=== PATIENT | male | born 1950 | race Caucasian/White ===

== ENCOUNTER 2017-06-03 10:08 | Inpatient (IN) | payer MEDICARE ==
[2017-06-03] VITALS (7 sets, daily range): BP systolic 99–125; BP diastolic 58–75; PULSE 65–96; RESP 16–22; TEMP 98.7–102.5; O2SAT 94–99
[~2017-06-03] VITALS: Ht 177.8 cm; Wt 70.9 kg
[2017-06-03] MEDS ORDERED: PLAV75TA29 PO (10:17)
[2017-06-03] MEDS ORDERED: ATEN25TA PO (10:17)
[2017-06-03] MEDS ORDERED: ASPI-516 CHEW (10:22)
[2017-06-03] MEDS ORDERED: CYAN1TAB24 PO (10:22)
--- NOTE | 2017-06-03 10:27 | PD ---
HPI Chief Complaint: Cold / Flu Symptoms Time Seen by Provider: 10:19 Travel History International Travel<30 days: No Contact w/Intl Traveler<30days: No Traveled to known affect area: No History of Present Illness HPI The patient is a 66-year-old male who presents to the emergency department via EMS for chills, rigors, fever, and cough. The patient flew down from [place] 2 days ago for the races. The patient developed a dry nonproductive cough last night. He then had chills and rigors earlier today. He does have a history of pneumonia. Patient has had subjective fever. He does complain of nausea with dry heaves, denies any diarrhea or abdominal pain. He denies any diffuse body aches. The patient did receive an influenza vaccination this year. The patient denies any dysuria, frequency, urgency, or myalgias. Symptoms are moderate. The patient has a remote history of tobacco use, quit over 10 years ago. PFSH Past Medical History Hx Anticoagulant Therapy: Yes (PLAVIX) Cardiovascular Problems: Yes (BYPASS) Diminished Hearing: No Hypertension: Yes Tetanus Vaccination: > 5 Years Influenza Vaccination: No Past Surgical History Coronary Artery Bypass Graft: Yes (QUAD 2005) Social History Alcohol Use: No Tobacco Use: No (QUIT 2004) Substance Use: No Allergies-Medications (Allergen,Severity, Reaction): Coded Allergies: No Known Allergies (Verified Allergy, Unknown, 06/03/17) Reported Meds & Prescriptions Reported Meds & Active Scripts Active Reported B12 (Cyanocobalamin) 1,000 Mcg Tab 1 Tab PO DAILY Aspirin 81 Mg Chew 81 Mg CHEW DAILY Atenolol 25 Mg Tab 12.5 Mg PO DAILY Plavix (Clopidogrel Bisulfate) 75 Mg Tab 75 Mg PO DAILY Review of Systems Except as stated in HPI: all other systems reviewed are Neg General / Constitutional: Positive: Fever, Chills HENT: No: Congestion Cardiovascular: No: Chest Pain or Discomfort Respiratory: Positive: Cough, No: Shortness of Breath Gastrointestinal: Positive: Nausea, Vomiting, No: Diarrhea, Abdominal Pain Genitourinary: No: Dysuria Musculoskeletal: No: Myalgias, Arthralgias Physical Exam Narrative GENERAL: Awake, alert, 66-year-old male who appears his stated age and is in no acute respiratory distress. SKIN: Focused skin assessment warm/dry. HEAD: Atraumatic. Normocephalic. EYES: Pupils equal and round. No scleral icterus. No injection or drainage. ENT: No nasal bleeding or discharge. Oropharynx reveals erythema without exudate NECK: Trachea midline. No JVD. CARDIOVASCULAR: Regular rate and rhythm. No murmur appreciated. Well-healed sternal scar. RESPIRATORY: No accessory muscle use. Few scattered rhonchi. GASTROINTESTINAL: Abdomen soft, non-tender, nondistended. No rebound tenderness. MUSCULOSKELETAL: No obvious deformities. No clubbing. No cyanosis. No edema. NEUROLOGICAL: Awake and alert. No obvious cranial nerve deficits. Motor grossly within normal limits. Normal speech. PSYCHIATRIC: Appropriate mood and affect; insight and judgment normal. Data Data Last Documented VS Vital Signs Date Time Temp Pulse Resp B/P (MAP) Pulse Ox O2 Delivery O2 Flow Rate FiO2 06/03/17 11:00 96 16 125/60 (81) 99 Room Air 06/03/17 10:31 2.00 06/03/17 10:20 102.5 Orders Orders Complete Blood Count With Diff (06/03/17 10:19) Comprehensive Metabolic Panel (06/03/17 10:19) B-Type Natriuretic Peptide (06/03/17 10:19) Magnesium (Mg) (06/03/17 10:19) Influenzae A/B Antigen (06/03/17 10:19) Blood Culture (06/03/17 10:19) Iv Access Insert/Monitor (06/03/17 10:19) Electrocardiogram (06/03/17 10:19) Ecg Monitoring (06/03/17 10:19) Oximetry (06/03/17 10:19) Oxygen Administration (06/03/17 10:19) Chest, Single Ap (06/03/17 10:19) Sodium Chloride 0.9% Flush (Ns Flush) (06/03/17 10:30) Albuterol-Ipratropium Neb (Duoneb Neb) (06/03/17 10:30) Sodium Chlor 0.9% 1000 Ml Inj (Ns 1000 M (06/03/17 10:30) Acetaminophen (Tylenol) (06/03/17 10:30) Urinalysis - C+S If Indicated (06/03/17 10:27) Lactic Acid (06/03/17 10:29) Ceftriaxone Inj (Rocephin Inj) (06/03/17 11:00) Azithromycin Inj (Zithromax Inj) (06/03/17 11:00) Labs Laboratory Tests Test 06/03/17 10:17 06/03/17 10:27 06/03/17 10:30 B-Type Natriuretic Peptide 59 PG/ML White Blood Count 14.1 TH/MM3 Red Blood Count 4.53 MIL/MM3 Hemoglobin 13.7 GM/DL Hematocrit 40.2 % Mean Corpuscular Volume 88.6 FL Mean Corpuscular Hemoglobin 30.3 PG Mean Corpuscular Hemoglobin Concent 34.2 % Red Cell Distribution Width 13.9 % Platelet Count 174 TH/MM3 Mean Platelet Volume 6.8 FL Neutrophils (%) (Auto) 87.1 % Lymphocytes (%) (Auto) 6.3 % Monocytes (%) (Auto) 5.1 % Eosinophils (%) (Auto) 0.8 % Basophils (%) (Auto) 0.7 % Neutrophils # (Auto) 12.3 TH/MM3 Lymphocytes # (Auto) 0.9 TH/MM3 Monocytes # (Auto) 0.7 TH/MM3 Eosinophils # (Auto) 0.1 TH/MM3 Basophils # (Auto) 0.1 TH/MM3 CBC Comment DIFF FINAL Differential Comment Blood Urea Nitrogen 13 MG/DL Creatinine 0.82 MG/DL Random Glucose 104 MG/DL Total Protein 7.9 GM/DL Albumin 3.8 GM/DL Calcium Level 8.4 MG/DL Magnesium Level 2.0 MG/DL Alkaline Phosphatase 119 U/L Aspartate Amino Transf (AST/SGOT) 18 U/L Alanine Aminotransferase (ALT/SGPT) 14 U/L Total Bilirubin 0.6 MG/DL Sodium Level 139 MEQ/L Potassium Level 3.5 MEQ/L Chloride Level 104 MEQ/L Carbon Dioxide Level 28.5 MEQ/L Anion Gap 7 MEQ/L Estimat Glomerular Filtration Rate 94 ML/MIN Lactic Acid Level 1.3 mmol/L [facility] Medical Decision Making Medical Screen Exam Complete: Yes Emergency Medical Condition: Yes Medical Record Reviewed: Yes Interpretation(s) EKG reveals normal sinus rhythm with a rate of 97. Q wave noted in lead 2, 3, and aVF. Inverted T waves noted in lead V5, V6, 1, 2, and aVF. Last Impressions Chest X-Ray 06/03/17 1019 Signed Impressions: Service Date/Time: Saturday, June 03, 2017 10:27 - CONCLUSION: Abnormal chest. Inflammatory process is suspected. Hilar mass on the right cannot be excluded. Levi Landrum MD FACR Laboratory Tests Test 06/03/17 10:17 06/03/17 10:27 06/03/17 10:30 B-Type Natriuretic Peptide 59 PG/ML White Blood Count 14.1 TH/MM3 Red Blood Count 4.53 MIL/MM3 Hemoglobin 13.7 GM/DL Hematocrit 40.2 % Mean Corpuscular Volume 88.6 FL Mean Corpuscular Hemoglobin 30.3 PG Mean Corpuscular Hemoglobin Concent 34.2 % Red Cell Distribution Width 13.9 % Platelet Count 174 TH/MM3 Mean Platelet Volume 6.8 FL Neutrophils (%) (Auto) 87.1 % Lymphocytes (%) (Auto) 6.3 % Monocytes (%) (Auto) 5.1 % Eosinophils (%) (Auto) 0.8 % Basophils (%) (Auto) 0.7 % Neutrophils # (Auto) 12.3 TH/MM3 Lymphocytes # (Auto) 0.9 TH/MM3 Monocytes # (Auto) 0.7 TH/MM3 Eosinophils # (Auto) 0.1 TH/MM3 Basophils # (Auto) 0.1 TH/MM3 CBC Comment DIFF FINAL Differential Comment Blood Urea Nitrogen 13 MG/DL Creatinine 0.82 MG/DL Random Glucose 104 MG/DL Total Protein 7.9 GM/DL Albumin 3.8 GM/DL Calcium Level 8.4 MG/DL Magnesium Level 2.0 MG/DL Alkaline Phosphatase 119 U/L Aspartate Amino Transf (AST/SGOT) 18 U/L Alanine Aminotransferase (ALT/SGPT) 14 U/L Total Bilirubin 0.6 MG/DL Sodium Level 139 MEQ/L Potassium Level 3.5 MEQ/L Chloride Level 104 MEQ/L Carbon Dioxide Level 28.5 MEQ/L Anion Gap 7 MEQ/L Estimat Glomerular Filtration Rate 94 ML/MIN Lactic Acid Level 1.3 mmol/L Date/Time Source Procedure Growth Status 06/03/17 10:27 Blood Peripheral Aerobic Blood Culture Pending Received 06/03/17 10:27 Blood Peripheral Anaerobic Blood Culture Pending Received 06/03/17 10:17 Blood Peripheral Aerobic Blood Culture Pending Received 06/03/17 10:17 Blood Peripheral Anaerobic Blood Culture Pending Received 06/03/17 10:27 Nasal Aspirate Influenza Types A,B Antigen (YOANA) - Final NEGATIVE FOR FLU A AND B ANTIGEN.... Complete Differential Diagnosis Differential diagnosis includes pneumonia, influenza, bronchitis, viral syndrome , URI, sepsis, UTI. Narrative Course IV was established, labs are drawn and sent, and the patient was placed on cardiac telemetry monitoring and continuous pulse oximetry monitoring. Chest x- ray was obtained. Influenza screen was sent to lab. The patient was administered Tylenol and IV fluids. Lactic acid blood culture were sent to lab. White count is mildly elevated at 14.3. Lactic acid is normal. Chest x- ray reveals pneumonia in the right middle to right upper lobe. The patient was reevaluated at 11:55 AM, his symptoms had improved. I did have a discussion with the patient regarding admission versus outpatient follow-up. I did offer admission, patient would prefer to try outpatient treatment. He will be placed on Zithromax, albuterol inhaler, and is advised to return if his symptoms worsen or progress. The patient agrees and understands. Influenza screen was negative. Sepsis Criteria SIRS Criteria (2 or more): Temp > 100.9 or < 96.8, Heart rate over 90 Sepsis Criteria (SIRS+source): Infect source susp/known Diagnosis Primary Impression: Pneumonia Qualified Codes: J18.1 - Lobar pneumonia, unspecified organism Patient Instructions: General Instructions Additional Instructions: Please provide a patient a copy of his labs and x-ray results at discharge. Medications as directed. Return immediately if symptoms worsen or progress. Follow-up with your primary physician. Med/Other Pt SpecificInfo: Prescription(s) given Scripts Albuterol 8.5 GM Inh (Proair Hfa 8.5 GM Inh) 90 Mcg/Act Aer 2 PUFF INH Q4-6H Y for SHORTNESS OF BREATH, #1 INHALER 0 Refills 108 mcg/actuation Prov: Home Bertrand MD 06/03/17 Levofloxacin (Levaquin) 500 Mg Tablet 500 MG PO DAILY for Infection for 7 Days, #7 TAB 0 Refills Prov: Home Bertrand MD 06/03/17 Disposition: 01 DISCHARGE HOME Condition: Stable Home Bertrand MD Jun 03, 2017 10:27
[2017-06-03] MEDS ORDERED: SODIUM CHLORIDE 0.9% FLUSH 10 ML FLUSH IVF PRN (10:30)
[2017-06-03] MEDS ORDERED: ACETAMINOPHEN 325 MG TAB PO ONE (10:30)
[2017-06-03] MEDS ORDERED: SODIUM CHLOR 0.9% 1000 ML INJ 1,000 ML IV ONE (10:30)
[2017-06-03] MEDS: RESP: ALBUTEROL 2.5 MG/IPRATROPIUM 0.5 MG NEB (SCH) INH ×2 (10:31→10:32)
[2017-06-03 10:44] LABS: AUTOMATED NEUTROPHIL # 12.3 TH/MM3 (1.8-7.7); BASOPHIL # 0.1 TH/MM3 (0-0.2); BASOPHIL % 0.7 % (0.0-2.0); EOSINOPHIL # 0.1 TH/MM3 (0-0.4); EOSINOPHIL % 0.8 % (0.0-4.0); HEMATOCRIT 40.2 % (39.0-51.0); HEMOGLOBIN 13.7 GM/DL (13.0-17.0); LYMPH % 6.3 % (9.0-44.0); LYMPHOCYTE # 0.9 TH/MM3 (1.0-4.8); MEAN CELL VOLUME 88.6 FL (80.0-100.0); MEAN CORPUSCULAR HEMOGLOBIN 30.3 PG (27.0-34.0); MEAN CORPUSCULAR HGB CONC 34.2 % (32.0-36.0); MEAN PLATELET VOLUME 6.8 FL (7.0-11.0); MONO % 5.1 % (0.0-8.0); MONOCYTE # 0.7 TH/MM3 (0-0.9); NEUT % 87.1 % (16.0-70.0); PLATELET COUNT 174 TH/MM3 (150-450); RED BLOOD COUNT 4.53 MIL/MM3 (4.50-5.90); RED CELL DISTRIBUTION WIDTH 13.9 % (11.6-17.2); WHITE BLOOD COUNT 14.1 TH/MM3 (4.0-11.0)
--- NOTE | 2017-06-03 10:49 | RADRPT ---
EXAM DATE/TIME: 06/03/2017 10:27 [facility] COMPARISON: No previous studies available for comparison. INDICATIONS : Lightheaded and chills. MEDICAL HISTORY : Carcinoma, gastric. SURGICAL HISTORY : CABG. Gastrectomy. ENCOUNTER: Initial ACUITY: 1 day PAIN SCORE: 0/10 LOCATION: Bilateral chest FINDINGS: There are early consolidative changes in the right perihilar region in the right upper lobe. The rig ht hilum is prominent and mass cannot be excluded. Multiple changes left base. CONCLUSION: Abnormal chest. Inflammatory process is suspected. Hilar mass on the right cannot be excluded. Levi Landrum MD FACR on June 03, 2017 at 10:37 Board Certified Radiologist. This report was verified electronically.
[2017-06-03] MEDS ORDERED: cefTRIAXone INJ 1,000 MG in SODIUM CHLORIDE 0.9% INJ 100 ML IV ONE (11:00)
[2017-06-03] MEDS ORDERED: AZITHROMYCIN INJ 500 MG in SODIUM CHLOR 0.9% 250 ML INJ 250 ML IV ONE (11:00)
[2017-06-03 11:03] LABS: ALBUMIN 3.8 GM/DL (3.4-5.0); ALT (GPT) 14 U/L (12-78); AST (GOT) 18 U/L (15-37); BICARBONATE 28.5 MEQ/L (21.0-32.0); BLOOD UREA NITROGEN 13 MG/DL (7-18); CALCIUM 8.4 MG/DL (8.5-10.1); CHLORIDE 104 MEQ/L (98-107); CREATININE 0.82 MG/DL (0.60-1.30); GLOMERULAR FILTRATION RATE 94 ML/MIN (>89); GLUCOSE,RANDOM 104 MG/DL (74-106); SODIUM (NA) 139 MEQ/L (136-145)
[2017-06-03 11:05] LABS: ALKALINE PHOSPHATASE 119 U/L (45-117); TOTAL BILIRUBIN ADULT 0.6 MG/DL (0.2-1.0); TOTAL PROTEIN 7.9 GM/DL (6.4-8.2)
[2017-06-03] MEDS ORDERED: ALBUAER3 INH (12:02)
[2017-06-03] MEDS ORDERED: LEVA500T33 PO (12:02)
[2017-06-03] MEDS ORDERED: LACTULOSE SYRUP 20 GM/30 ML CUP PO PRN (13:15)
[2017-06-03] MEDS ORDERED: NALOXONE HCL 0.4 MG/ML AMP IV PUSH PRN (13:15)
[2017-06-03] MEDS ORDERED: BISACODYL 10 MG SUPP RECTAL PRN (13:15)
[2017-06-03] MEDS ORDERED: SODIUM CHLORIDE 0.9% FLUSH 10 ML FLUSH IV FLUSH PRN (13:15)
[2017-06-03] MEDS ORDERED: MAGNESIUM HYDROXIDE SUSP 30 ML CUP PO PRN (13:15)
[2017-06-03] MEDS ORDERED: SENNOSIDES 8.6 MG TAB PO PRN (13:15)
--- NOTE | 2017-06-03 19:15 | HHI.HP ---
HPI Service [facility] Primary Care Physician Unknown Admission Diagnosis right middle lobe pneumonia, sepsis Diagnoses: Travel History International Travel<30 Days: No Contact w/Intl Traveler <30 Da: No Traveled to Known Affected Are: No History of Present Illness Pt is a 66 yr old male w PMHx of gastric CA, recurrent aspiration PNA, CAD requiring quadruple bypass sx presented to the ED upon the requests of his friends because he wasn't feeling well. Pt is visiting from [place] and is here for the [employer]. This morning pt had chills, tactile fevers and per friend was confused. He denied any cough however when I was interviewing him he did have a wet cough which he admits he has been having on and off. Pt states that he sees his curb setter helper Dr. Randy Kwon and he has been doing CT scans of his chest q6 months because of concerns of aspiration. He states that at times, he gets low grade fevers which usually last about 24 hrs. Pt denies any sick contacts. Denies any burning w urination, increase urinary frequency, sore throat or runny nose. Does admit to congestion. Denies any CP/SOB/N/V at this time. I also spoke w Pt's friend (Dr. Gabino Renteria [phone]) per his request Discussed case w Dr. Britney Young, pulm fellow covering for Dr. 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 Young. last CT was from dec 2016- multifocal infiltrate w slight worsening on the right apex and improvement of other focii. Past Surgical History quadruple bypass sx, right carotid stent in 2009, abdominal hernia repair. Reported Medications Reported Meds & Active Scripts Active Proair Hfa 8.5 GM Inh (Albuterol Sulfate) 90 Mcg/Act Aer 2 Puff INH Q4-6H PRN 108 mcg/actuation Levaquin (Levofloxacin) 500 Mg Tablet 500 Mg PO DAILY 7 Days Reported B12 (Cyanocobalamin) 1,000 Mcg Tab 1 Tab PO DAILY Aspirin 81 Mg Chew 81 Mg CHEW DAILY Atenolol 25 Mg Tab 12.5 Mg PO DAILY Plavix (Clopidogrel Bisulfate) 75 Mg Tab 75 Mg PO DAILY Allergies: Coded Allergies: No Known Allergies (Verified Allergy, Unknown, 06/03/17) Family History mother from pancreatic cancer father from lymphoma Social History quit smoking in 2009. smoked for 40+years denies alcohol use or illegal drug use Physical Exam Vital Signs Vital Signs Date Time Temp Pulse Resp B/P (MAP) Pulse Ox O2 Delivery O2 Flow Rate FiO2 06/03/17 16:57 98.7 65 18 111/58 (75) 98 06/03/17 12:15 99.9 06/03/17 11:00 96 16 125/60 (81) 99 Room Air 06/03/17 10:31 95 Nasal Cannula 2.00 06/03/17 10:31 91 20 94 Room Air 06/03/17 10:20 91 20 94 Room Air 06/03/17 10:20 102.5 06/03/17 10:14 89 22 119/75 (90) Physical Exam GENERAL: This is a well-nourished, well-developed patient, sitting up in bed SKIN: No rashes. Cool and dry. HEAD: Atraumatic. Normocephalic. EYES: Extraocular motions intact. ENT: Nose without drainage. Throat without erythema, tonsillar hypertrophy or exudate. Uvula midline. Airway patent. NECK: Trachea midline. CARDIOVASCULAR: Regular rate and rhythm without murmurs RESPIRATORY: no wheezing, I didn't appreciate GASTROINTESTINAL: Abdomen soft, non-tender, nondistended. No guarding. MUSCULOSKELETAL: Extremities without edema. NEUROLOGICAL: Awake and alert. Motor and sensory grossly within normal limits. Normal speech. Laboratory Laboratory Tests Test 06/03/17 10:17 06/03/17 10:27 06/03/17 10:30 B-Type Natriuretic Peptide 59 White Blood Count 14.1 Red Blood Count 4.53 Hemoglobin 13.7 Hematocrit 40.2 Mean Corpuscular Volume 88.6 Mean Corpuscular Hemoglobin 30.3 Mean Corpuscular Hemoglobin Concent 34.2 Red Cell Distribution Width 13.9 Platelet Count 174 Mean Platelet Volume 6.8 Neutrophils (%) (Auto) 87.1 Lymphocytes (%) (Auto) 6.3 Monocytes (%) (Auto) 5.1 Eosinophils (%) (Auto) 0.8 Basophils (%) (Auto) 0.7 Neutrophils # (Auto) 12.3 Lymphocytes # (Auto) 0.9 Monocytes # (Auto) 0.7 Eosinophils # (Auto) 0.1 Basophils # (Auto) 0.1 CBC Comment DIFF FINAL Differential Comment Blood Urea Nitrogen 13 Creatinine 0.82 Random Glucose 104 Total Protein 7.9 Albumin 3.8 Calcium Level 8.4 Magnesium Level 2.0 Alkaline Phosphatase 119 Aspartate Amino Transf (AST/SGOT) 18 Alanine Aminotransferase (ALT/SGPT) 14 Total Bilirubin 0.6 Sodium Level 139 Potassium Level 3.5 Chloride Level 104 Carbon Dioxide Level 28.5 Anion Gap 7 Estimat Glomerular Filtration Rate 94 Lactic Acid Level 1.3 Date/Time Source Procedure Growth Status 06/03/17 10:27 Blood Peripheral Aerobic Blood Culture Pending Received 06/03/17 10:27 Blood Peripheral Anaerobic Blood Culture Pending Received 06/03/17 10:27 Nasal Aspirate Influenza Types A,B Antigen (YOANA) - Final NEGATIVE FOR FLU A AND B ANTIGEN.... Complete Result Diagram: 06/03/17 1027 06/03/17 1027 Imaging Last Impressions Chest X-Ray 06/03/17 1019 Signed Impressions: Service Date/Time: Saturday, June 03, 2017 10:27 - CONCLUSION: Abnormal chest. Inflammatory process is suspected. Hilar mass on the right cannot be excluded. Levi Landrum MD FACR Caprini VTE Risk Assessment Caprini VTE Risk Assessment: Mod/High Risk (score >= 2) Caprini Risk Assessment Model Point Value = 1 Point Value = 2 Point Value = 3 Point Value = 5 Age 41-60 Minor surgery BMI > 25 kg/m2 Swollen legs Varicose veins or History of unexplained or recurrent spontaneous Oral contraceptives or hormone replacement Sepsis (< 1 month) Serious lung disease, including pneumonia (< 1 month) Abnormal pulmonary function Acute myocardial infarction Congestive heart failure (< 1 month) History of inflammatory bowel disease Medical patient at bed rest Age 61-74 Arthroscopic surgery Major open surgery (> 45 min) Laparoscopic surgery (> 45 min) Malignancy Confined to bed (> 72 hours) Immobilizing plaster cast Central venous access Age >= 75 History of VTE Family history of VTE Factor V Leiden Prothrombin [id number] Lupus anticoagulant Anticardiolipin antibodies Elevated serum homocysteine Heparin-induced thrombocytopenia Other congenital or acquired thrombophilia Stroke (< 1 month) Elective arthroplasty Hip, pelvis, or leg fracture Acute spinal cord injury (< 1 month) Prophylaxis Regimen Total Risk Factor Score Risk Level Prophylaxis Regimen 0-1 Low Early ambulation 2 Moderate Order ONE of the following: *Sequential Compression Device (SCD) *Heparin 5000 units SQ BID 3-4 Higher Order ONE of the following medications: *Heparin 5000 units SQ TID *Enoxaparin/Lovenox 40 mg SQ daily (WT < 150 kg, CrCl > 30 mL/min) *Enoxaparin/Lovenox 30 mg SQ daily (WT < 150 kg, CrCl > 10-29 mL/min) *Enoxaparin/Lovenox 30 mg SQ BID (WT < 150 kg, CrCl > 30 mL/min) AND/OR *Sequential Compression Device (SCD) 5 or more Highest Order ONE of the following medications: *Heparin 5000 units SQ TID (Preferred with Epidurals) *Enoxaparin/Lovenox 40 mg SQ daily (WT < 150 kg, CrCl > 30 mL/min) *Enoxaparin/Lovenox 30 mg SQ daily (WT < 150 kg, CrCl > 10-29 mL/min) *Enoxaparin/Lovenox 30 mg SQ BID (WT < 150 kg, CrCl > 30 mL/min) AND *Sequential Compression Device (SCD) Assessment and Plan Assessment and Plan sepsis: Pt presented w Leukocytosis of 14,1, fevers 102.5 or source aspiration PNA. Pt does have a hx of aspiration PNA. Initially received dose of rocephin and azithro however I will switch him to unasyn IV to cover for aspiration PNA and transition him to po augmentin upon d/c. Blood cx pending. f/u. normal lactic acid. encourage use of IS q1hr while awake. 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 resume home meds. monitor vitals and repeat CBC in am. Code Status full Discussed Condition With ER physician, Pt, friend, Dr. Renteria and Dr. Young. Karol Gutierrez MD Jun 03, 2017 19:15
[2017-06-03] MEDS: AMPICILLIN-SULBACTAM INJ 1,500 MG in SODIUM CHLORIDE 0.9% INJ 100 ML IV SCH (21:24)
[2017-06-03] MEDS: ENOXAPARIN SODIUM 40 MG/0.4 ML SYRINGE SQ SCH (21:24)
[2017-06-03] MEDS: SODIUM CHLORIDE 0.9% FLUSH 10 ML FLUSH IV FLUSH SCH (21:25)
[2017-06-03] MEDS: DOCUSATE SODIUM 50 MG/SENNA 8.6 MG TAB PO SCH (21:33)
--- NOTE | 2017-06-03 23:14 | EKG ---
Date Performed: 06/03/2017 Time Performed: 10:24:31 PTAGE: 66 years EKG: Sinus rhythm WITH OCCASIONAL VENTRICULAR PREMATURE COMPLEXES POSSIBLE LEFT ATRIAL ENLARGEMENT INFERIOR MYOCARDIAL INFARCTION ANTEROLATERAL MYOCARDIAL INFARCTION ABNORMAL ECG NO PREVIOUS TRACING DOCTOR: Lynnette Hummel Interpretating Date/Time 06/03/2017 23:13:07
[2017-06-04] VITALS (7 sets, daily range): BP systolic 80–113; BP diastolic 46–61; PULSE 58–74; RESP 18–20; TEMP 97.8–99.8; O2SAT 93–96
[2017-06-04] MEDS: AMPICILLIN-SULBACTAM INJ 1,500 MG in SODIUM CHLORIDE 0.9% INJ 100 ML IV SCH ×4 (03:25→20:46)
[2017-06-04] MEDS: SODIUM CHLORIDE 0.9% FLUSH 10 ML FLUSH IV FLUSH SCH ×2 (07:52→20:47)
[2017-06-04] MEDS: DOCUSATE SODIUM 50 MG/SENNA 8.6 MG TAB PO SCH ×2 (07:52→20:47)
[2017-06-04] MEDS ORDERED: cefTRIAXone INJ 1,000 MG in SODIUM CHLORIDE 0.9% INJ 100 ML IV SCH (11:00)
[2017-06-04] MEDS ORDERED: AZITHROMYCIN 250 MG TAB PO SCH (11:00)
[2017-06-04] MEDS ORDERED: SODIUM CHLOR 0.9% 1000 ML INJ 1,000 ML IV ONE (11:15)
--- NOTE | 2017-06-04 11:25 | HHI.PR ---
Subjective Remarks Pt tells me he feels well. Denies any worsening SOB, CP, nausea or vomiting. Denies any cough. I spoke w RN after I saw the pt and he notified by that BP dropped and MAP <65 Objective Vitals Vital Signs Date Time Temp Pulse Resp B/P (MAP) Pulse Ox O2 Delivery O2 Flow Rate FiO2 06/04/17 08:24 98.5 58 20 91/54 (66) 93 06/04/17 04:00 98.5 66 19 99/60 (73) 96 06/04/17 00:15 97.8 64 18 100/58 (72) 95 06/03/17 20:45 98.9 67 16 99/59 (72) 94 06/03/17 16:57 98.7 65 18 111/58 (75) 98 06/03/17 12:15 99.9 I/O 06/03/17 06/03/17 06/03/17 06/04/17 06/04/17 06/04/17 07:00 15:00 23:00 07:00 15:00 23:00 Intake Total 1100 ml 900 ml 1000 ml Output Total 0 ml Balance 1100 ml 900 ml 1000 ml Intake Oral 800 ml 900 ml IV Total 1100 ml 100 ml 100 ml Output Urine Total 0 ml # Voids 2 # Bowel Movements 0 0 Result Diagram: 06/03/17 1027 06/03/17 1027 Imaging Last Impressions Chest X-Ray 06/03/17 1019 Signed Impressions: Service Date/Time: Saturday, June 03, 2017 10:27 - CONCLUSION: Abnormal chest. Inflammatory process is suspected. Hilar mass on the right cannot be excluded. Levi Landrum MD FACR Objective Remarks GENERAL: This is a well-nourished, well-developed patient, sitting up in bed ENT: Nose without drainage. Airway patent. NECK: Trachea midline. CARDIOVASCULAR: Regular rate and rhythm without murmurs RESPIRATORY: decreased breath sounds but no wheezing GASTROINTESTINAL: Abdomen soft, non-tender, nondistended. No guarding. MUSCULOSKELETAL: Extremities without edema. NEUROLOGICAL: Awake and alert. Motor and sensory grossly within normal limits. Normal speech. A/P Assessment and Plan sepsis: Pt presented w Leukocytosis of 14,1, fevers 102.5 or source aspiration PNA. Pt does have a hx of aspiration PNA. Initially received dose of rocephin and azithro however I will switch him to unasyn IV to cover for aspiration PNA and transition him to po augmentin upon d/c. Blood cx neg x 1 day and sputum cx pending. f/u. normal lactic acid. encourage use of IS q1hr while awake. Hypotension: After I saw the pt. RN notified me that pt's BP dropped. I have ordered 1 L NS. Will re-assess. Awaiting on CBC and repeat lactic acid. close monitoring of vitals. 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 resume home meds. monitor vitals and repeat CBC in am. Discharge Planning monitor vitals closely. continue IV abx. Karol Gutierrez MD Jun 04, 2017 11:25
[2017-06-04 13:03] LABS: AUTOMATED NEUTROPHIL # 10.7 TH/MM3 (1.8-7.7); BASOPHIL % 0.3 % (0.0-2.0); EOSINOPHIL # 0.1 TH/MM3 (0-0.4); HEMATOCRIT 35.6 % (39.0-51.0); LYMPH % 13.6 % (9.0-44.0); LYMPHOCYTE # 1.9 TH/MM3 (1.0-4.8); MEAN CELL VOLUME 89.2 FL (80.0-100.0); MEAN CORPUSCULAR HEMOGLOBIN 30.2 PG (27.0-34.0); MEAN CORPUSCULAR HGB CONC 33.9 % (32.0-36.0); MONO % 9.1 % (0.0-8.0); MONOCYTE # 1.3 TH/MM3 (0-0.9); PLATELET COUNT 159 TH/MM3 (150-450); RED BLOOD COUNT 3.98 MIL/MM3 (4.50-5.90); RED CELL DISTRIBUTION WIDTH 14.1 % (11.6-17.2)
[2017-06-04] MEDS: SODIUM CHLOR 0.9% 1000 ML INJ 1,000 ML IV SCH (14:27)
[2017-06-04] MEDS: ASPIRIN 81 MG CHEW TAB CHEW SCH (15:13)
[2017-06-04] MEDS: CLOPIDOGREL 75 MG TAB PO SCH (15:13)
--- NOTE | 2017-06-04 15:22 | RADRPT ---
EXAM DATE/TIME: 06/04/2017 15:01 [facility] COMPARISON: CHEST SINGLE AP, June 03, 2017, 10:27. INDICATIONS : Shortness of breath. Possible infiltrate. MEDICAL HISTORY : Carcinoma, gastric. SURGICAL HISTORY : CABG. Gastrectomy. ENCOUNTER: Subsequent ACUITY: 2 days PAIN SCORE: 0/10 LOCATION: Bilateral chest FINDINGS: Post surgical features of prior median sternotomy and aortic valve replacement. Persistent interstiti al and patchy airspace opacities in the right lower lobe and inferior right upper lobe. right hilum a ppears less prominent on this exam. Remainder of the exam is unchanged. CONCLUSION: 1. Interstitial and airspace opacities in the right lower and inferior right upper lobes consistent w ith multilobar pneumonia. 2. Slightly less prominent right hilar region on current exam. If this region remains prominent follo wing appropriate course of treatment, CT examination is warranted for further evaluation. Kirt Correia MD on June 04, 2017 at 15:17 Board Certified Radiologist. This report was verified electronically.
[2017-06-04] MEDS: ENOXAPARIN SODIUM 40 MG/0.4 ML SYRINGE SQ SCH (20:47)
[2017-06-05 00:17] VITALS: BP 101/56; PULSE 66; RESP 17; TEMP 99.9; O2SAT 94
[2017-06-05] MEDS: AMPICILLIN-SULBACTAM INJ 1,500 MG in SODIUM CHLORIDE 0.9% INJ 100 ML IV SCH ×3 (02:57→12:55)
[2017-06-05 04:40] VITALS: BP 116/62; PULSE 60; RESP 17; TEMP 98.9; O2SAT 92
[2017-06-05] MEDS: SODIUM CHLOR 0.9% 1000 ML INJ 1,000 ML IV SCH ×2 (06:33→07:44)
[2017-06-05] MEDS: CLOPIDOGREL 75 MG TAB PO SCH (07:44)
[2017-06-05] MEDS: DOCUSATE SODIUM 50 MG/SENNA 8.6 MG TAB PO SCH (07:44)
[2017-06-05] MEDS: ASPIRIN 81 MG CHEW TAB CHEW SCH (07:45)
[2017-06-05] MEDS: SODIUM CHLORIDE 0.9% FLUSH 10 ML FLUSH IV FLUSH SCH (07:45)
[2017-06-05 08:00] VITALS: BP 141/65; PULSE 66; RESP 20; TEMP 98; O2SAT 94
[2017-06-05 11:50] LABS: AUTOMATED NEUTROPHIL # 7.6 TH/MM3 (1.8-7.7); BASOPHIL % 0.3 % (0.0-2.0); EOSINOPHIL # 0.1 TH/MM3 (0-0.4); EOSINOPHIL % 1.2 % (0.0-4.0); HEMATOCRIT 34.6 % (39.0-51.0); HEMOGLOBIN 11.9 GM/DL (13.0-17.0); LYMPH % 14.5 % (9.0-44.0); LYMPHOCYTE # 1.5 TH/MM3 (1.0-4.8); MEAN CELL VOLUME 89.1 FL (80.0-100.0); MEAN CORPUSCULAR HEMOGLOBIN 30.6 PG (27.0-34.0); MEAN CORPUSCULAR HGB CONC 34.3 % (32.0-36.0); MEAN PLATELET VOLUME 6.8 FL (7.0-11.0); MONOCYTE # 0.8 TH/MM3 (0-0.9); PLATELET COUNT 143 TH/MM3 (150-450); RED BLOOD COUNT 3.88 MIL/MM3 (4.50-5.90); RED CELL DISTRIBUTION WIDTH 13.6 % (11.6-17.2)
[2017-06-05 12:06] LABS: BICARBONATE 27.6 MEQ/L (21.0-32.0); CALCIUM 8.3 MG/DL (8.5-10.1); CREATININE 0.66 MG/DL (0.60-1.30)
[2017-06-05 12:25] VITALS: BP 144/66; PULSE 64; RESP 20; TEMP 98; O2SAT 94
[2017-06-05] MEDS ORDERED: POTASSIUM CHLORIDE 20 MEQ CONTROLLED RELEASE TAB PO ONE (12:45)
[2017-06-05] MEDS ORDERED: AUGM875T3 PO (13:23)
--- NOTE | 2017-06-05 13:31 | HHI.DS ---
Discharge Summary Admission Date Jun 03, 2017 at 13:12 Discharge Date: Jun 05, 2017 Admitting Diagnosis right middle lobe pneumonia, sepsis (1) Pneumonia ICD Code: J18.9 - Pneumonia, unspecified organism Status: Acute Procedures none Brief History - From Admission Pt is a 66 yr old male w PMHx of gastric CA, recurrent aspiration PNA, CAD requiring quadruple bypass sx presented to the ED upon the requests of his friends because he wasn't feeling well. Pt is visiting from [place] and is here for the [facility]. This morning pt had chills, tactile fevers and per friend was confused. He denied any cough however when I was interviewing him he did have a wet cough which he admits he has been having on and off. Pt states that he sees his carpenter Dr. Randy Kwon and he has been doing CT scans of his chest q6 months because of concerns of aspiration. He states that at times, he gets low grade fevers which usually last about 24 hrs. Pt denies any sick contacts. Denies any burning w urination, increase urinary frequency, sore throat or runny nose. Does admit to congestion. Denies any CP/SOB/N/V at this time. I also spoke w Pt's friend (Dr. Gabino Renteria [phone]) per his request Discussed case w Dr. Britney Young, pulm fellow covering for Dr. Kwon regarding pt's history CBC/BMP: 06/05/17 1113 06/05/17 1113 Significant Findings Laboratory Tests Test 06/03/17 10:17 06/03/17 10:27 06/03/17 10:30 06/04/17 12:15 White Blood Count 14.1 TH/MM3 (4.0-11.0) 14.0 TH/MM3 (4.0-11.0) Mean Platelet Volume 6.8 FL (7.0-11.0) Neutrophils (%) (Auto) 87.1 % (16.0-70.0) 76.0 % (16.0-70.0) Lymphocytes (%) (Auto) 6.3 % (9.0-44.0) Neutrophils # (Auto) 12.3 TH/MM3 (1.8-7.7) 10.7 TH/MM3 (1.8-7.7) Lymphocytes # (Auto) 0.9 TH/MM3 (1.0-4.8) Calcium Level 8.4 MG/DL (8.5-10.1) Alkaline Phosphatase 119 U/L (45-117) Red Blood Count 3.98 MIL/MM3 (4.50-5.90) Hemoglobin 12.0 GM/DL (13.0-17.0) Hematocrit 35.6 % (39.0-51.0) Monocytes (%) (Auto) 9.1 % (0.0-8.0) Monocytes # (Auto) 1.3 TH/MM3 (0-0.9) Test 06/04/17 14:10 06/05/17 11:13 Red Blood Count 3.88 MIL/MM3 (4.50-5.90) Hemoglobin 11.9 GM/DL (13.0-17.0) Hematocrit 34.6 % (39.0-51.0) Platelet Count 143 TH/MM3 (150-450) Mean Platelet Volume 6.8 FL (7.0-11.0) Neutrophils (%) (Auto) 76.0 % (16.0-70.0) Random Glucose 134 MG/DL (74-106) Calcium Level 8.3 MG/DL (8.5-10.1) Potassium Level 3.3 MEQ/L (3.5-5.1) Imaging Last Impressions Chest X-Ray 06/04/17 0000 Signed Impressions: Service Date/Time: Sunday, June 04, 2017 15:01 - CONCLUSION: 1. Interstitial and airspace opacities in the right lower and inferior right upper lobes consistent with multilobar pneumonia. 2. Slightly less prominent right hilar region on current exam. If this region remains prominent following appropriate course of treatment, CT examination is warranted for further evaluation. Kirt Correia MD PE at Discharge GENERAL: This is a well-nourished, well-developed patient, sitting up in bed ENT: Nose without drainage. Airway patent. NECK: Trachea midline. CARDIOVASCULAR: Regular rate and rhythm without murmurs RESPIRATORY: decreased breath sounds but no wheezing GASTROINTESTINAL: Abdomen soft, non-tender, nondistended. No guarding. MUSCULOSKELETAL: Extremities without edema. NEUROLOGICAL: Awake and alert. Motor and sensory grossly within normal limits. Normal speech. Pt update on day of discharge Pt tells me that he feels much better compared to when he came in. Has been doing his IS as instructed. He ambulated down the halls yesterday w no difficulty. Pt states that he would rather watch the race on TV then go to the race. Friend at bedside agreeable and will come back to get him. Hospital Course sepsis: Pt presented w Leukocytosis of 14,1, fevers 102.5 or source aspiration PNA. Pt does have a hx of aspiration PNA. Initially received dose of rocephin and azithro however he was then switched to unasyn IV to cover for aspiration PNA and I have transitioned him to po augmentin upon d/c. Blood cx neg x 2 days and sputum cx growing normal andrew. Lactic acid have been within normal limits x 2. Encouraged use of IS q1hr while awake. Leukocytosis now resolved. WBC 10.0 today Hypotension: s/p 1 L NS and pt did get IVF but now BP's in the 140's. Ok to resume BP meds as an outpatient. 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 Pt on a regular diet w thin liquids. Pt counseled to sleep w head of bed elevated to prevent aspiration. resume home meds as an outpatient. Pt has been instructed to f/u w his carpenter next week for f/u. Pt Condition on Discharge: Stable Discharge Disposition: Discharge Home Discharge Time: > 30 minutes Discharge Instructions DIET: Follow Instructions for: As Tolerated, No Restrictions Activities you can perform: Regular-No Restrictions Follow up Referrals: Pulmonology - 3-5 Days New Medications: Amoxicillin-Clavulanate (Augmentin) 875-125 Mg Tab 1 TAB PO BID for Infection, #15 TAB 0 Refills Continued Medications: Albuterol 8.5 GM Inh (Proair Hfa 8.5 GM Inh) 90 Mcg/Act Aer 2 PUFF INH Q4-6H PRN for SHORTNESS OF BREATH, #1 INHALER 0 Refills 108 mcg/actuation Aspirin (Aspirin) 81 Mg Chew 81 MG CHEW DAILY, TAB 0 Refills Atenolol (Atenolol) 25 Mg Tab 12.5 MG PO DAILY for Blood Pressure Management, #30 TAB 0 Refills Clopidogrel (Plavix) 75 Mg Tab 75 MG PO DAILY for Blood Clot Prevention, #30 TAB 0 Refills Cyanocobalamin (B12) 1,000 Mcg Tab 1 TAB PO DAILY Discontinued Medications: Levofloxacin (Levaquin) 500 Mg Tablet 500 MG PO DAILY for Infection for 7 Days, #7 TAB 0 Refills Karol Gutierrez MD Jun 05, 2017 13:31
[2017-06-05 17:00] VITALS: BP 105/63; PULSE 65; RESP 20; TEMP 98.6; O2SAT 94
[2017-06-05] MEDS ORDERED: AMOXICILLIN/CLAVULANATE K 875 MG TAB PO SCH (19:00)
== END 2017-06-05 21:07 | disposition home or self-care (01) | DRG 871 ==
LOC: NEPC 10:08 → NEDA 13:12 → N05B 15:25
PROVIDERS: ADMIT Hospitalist; ATTEND Hospitalist
DX: A41.9 Sepsis, unspecified organism (principal); J18.1 Lobar pneumonia, unspecified organism; I95.9 Hypotension, unspecified; I10 Essential (primary) hypertension; I25.10 Atherosclerotic heart disease of native coronary artery without angina pectoris; E78.5 Hyperlipidemia, unspecified; Z87.01 Personal history of pneumonia (recurrent); Z86.73 Personal history of transient ischemic attack (TIA), and cerebral infarction without residual deficits; Z85.028 Personal history of other malignant neoplasm of stomach; Z79.01 Long term (current) use of anticoagulants; Z95.1 Presence of aortocoronary bypass graft; Z90.3 Acquired absence of stomach [part of]; Z87.891 Personal history of nicotine dependence
CPT/HCPCS: 71045; 71046; 80048; 80053; 83605; 83735; 83880; 85025; 87040; 87070; 87205; 87804; 93005; 94150; 94640; 94664; 94667; 96365; 96368; J0295; J0456; J0696; J1650; J7030; J7050